=== PATIENT | female | born 1940 | race African-American/Black ===

== ENCOUNTER 2022-04-20 21:36 | Inpatient (IN) | payer MEDICARE, OTHER ==
[~2022-04-20] VITALS: Ht 188 cm; Wt 58.4 kg
[~2022-04-20 21:36] MED LIST: AMBIEN 5MG TABLE5 MG PO; ASPIRIN 32325 MG/TAB PO; CIPRO 500MG TA500 MG PO; COLACE 100100 MG/CAP PO; LORTAB 5/500 501 TAB PO; LOVENOX 4040 MG/0.4 SQ; NORCO 325 MG-7.1 TAB PO; PRILOSEC 20MG20 MG PO; ROXICODONE 55 MG/TAB PO; SIMVASTATIN10 MG PO; VALIUM 5MG T5 MG/TAB PO; VITAMIN A PO; VITAMIN B COMPL1 T16 PO; VITAMIN D PO; VITAMIN E PO; ZOCOR 10MG10 MG PO; [UNRECOGNIZED DRUG - OTHER] PO
[2022-04-20 22:23] LABS: BASO # 0.1 K/mm3 (0.0-0.2); BASO % 1.7 % (0.0-2.0); EOS # 0.2 K/mm3 (0.0-0.7); EOS % 3.2 % (0.0-4.0); GRAN # 4.3 K/mm3 (1.4-6.5); GRAN % 65.2 % (42.2-75.2); HEMOGLOBIN 11.3 g/dl (12.5-16.0); LYMPH # 1.6 K/mm3 (1.2-3.4); MEAN CELL VOLUME 99 fl (80.0-100.0); MEAN CORPUSCULAR HEMOGLOBIN 31 pg (27-31); MEAN CORPUSCULAR HGB CONC 31 g/dl (33.0-37.0); MEAN PLATELET VOLUME 9.2 fl (7.4-10.4); MONO # 0.4 K/mm3 (0.1-0.6); MONO % 5.6 % (1.7-9.3); PLATELET COUNT 296 K/mm3 (130-400); RED BLOOD COUNT 3.69 M/mm3 (4.10-5.30); REDCELL DISTRIBUTION WIDTH-CV 13.8 % (11.5-14.5)
[2022-04-20 22:24] LABS: HEMATOCRIT 36.4 % (37.0-47.0)
[2022-04-20 22:29] LABS: PROTHROMBIN TIME 11.4 SECONDS (9.7-12.8)
[2022-04-20 22:54] LABS: ALBUMIN 3.8 gm/dL (3.4-4.8); BILIRUBIN,TOTAL 0.3 mg/dL (0.2-1.2); CALCIUM 9.6 mg/dL (8.4-10.2); CREATININE, serum 1.38 mg/dL (0.57-1.11); POTASSIUM 3.6 mmol/L (3.5-4.5); TOTAL PROTEIN 7.3 gm/dL (6.2-8.1)
[2022-04-20] MEDS ORDERED: RESTORIL30 MG (23:58)
[2022-04-21] VITALS (17 sets, daily range): BP systolic 106–185; BP diastolic 45–107; PULSE 63–103; TEMP 97–98.6
[2022-04-21] MEDS ORDERED: NORCO 325 MG-51 TAB PO (00:12)
--- NOTE | 2022-04-21 00:15 | NUR ---
PT ARRIVES VIA CART FROM ED. IS ALERT AND ORIENTED X3. DOES NOT REALIZE SHE BROKE HER HIP. MOVED TO BED WITH 3 ASSIST. RT LEG EXTERNALLY ROTATED. HAS INT TO LFA. REPORTS MORE PAIN TO RT LEG AFTER MOVING TO BED.
--- NOTE | 2022-04-21 00:30 | NUR ---
PT HAS HER COAT, PAIR OF SOCKS AND PINK HAIR COVERING WITH HER ON ADMISSION.
--- NOTE | 2022-04-21 00:44 | NUR ---
MEDICATED WITH HS MEDS INCLUDING MORPHINE 2MG IVP FOR PAIN AND HYDRALAZINE 10MG IVP FOR ELEVATED B/P. IVF STARTED. PT NPO.
--- NOTE | 2022-04-21 02:19 | NUR ---
MEDICATED WITH MORPHINE 2MG IVP FOR PAIN TO RT LEG.
--- NOTE | 2022-04-21 05:16 | NUR ---
MEDICATED WITH MORPHINE 2MG IVP FOR RT HIP PAIN.
--- NOTE | 2022-04-21 05:30 | NUR ---
INSERTED #16FR YANEZ CATH AND PLACED TO BSD, IMMEDIATE RETURN OF YELLOW URINE. UA COLLECTED AND SENT TO LAB. PT TOLERATED PROCEDURE WITHOUT PROBLEM.
[2022-04-21 05:47] LABS: COLLECTION METHOD CATHETER
[2022-04-21 05:53] LABS: MUCOUS Present (NOT PRESENT); SQUAMOUS EPITHELIAL None Seen /hpf (0-10); URINE BACTERIA None Seen /hpf (NONE SEEN)
[2022-04-21 05:54] LABS: URINE APPEARANCE Clear (CLEAR/HAZY); URINE BLOOD Negative (NEGATIVE); URINE COLOR Yellow (YELLOW); URINE GLUCOSE Negative (NEGATIVE); URINE KETONE Negative (NEGATIVE); URINE NITRATE Negative (NEGATIVE); URINE PROTEIN(semi-quant) TRACE (NEGATIVE); URINE UROBILINOGEN 0.2 E.U/dL (0.2-1.0)
[2022-04-21 06:31] LABS: BASO # 0.1 K/mm3 (0.0-0.2); BASO % 1.2 % (0.0-2.0); EOS # 0.2 K/mm3 (0.0-0.7); GRAN # 5.1 K/mm3 (1.4-6.5); GRAN % 66.9 % (42.2-75.2); HEMOGLOBIN 10.4 g/dl (12.5-16.0); LYMPH # 1.7 K/mm3 (1.2-3.4); MEAN CELL VOLUME 99 fl (80.0-100.0); MEAN CORPUSCULAR HEMOGLOBIN 30 pg (27-31); MEAN CORPUSCULAR HGB CONC 30 g/dl (33.0-37.0); MEAN PLATELET VOLUME 10.1 fl (7.4-10.4); MONO # 0.6 K/mm3 (0.1-0.6); MONO % 7.8 % (1.7-9.3); PLATELET COUNT 285 K/mm3 (130-400); RED BLOOD COUNT 3.47 M/mm3 (4.10-5.30); REDCELL DISTRIBUTION WIDTH-CV 13.7 % (11.5-14.5)
[2022-04-21 06:44] LABS: CALCIUM 8.9 mg/dL (8.4-10.2); CREATININE, serum 1.22 mg/dL (0.57-1.11); HEMATOCRIT 34.4 % (37.0-47.0); POTASSIUM 3.5 mmol/L (3.5-4.5)
--- NOTE | 2022-04-21 08:00 | NUR ---
PATIENT IS ORIENTED X2 BUT ASKED THE NURSE WHY SHE WAS NPO. NURSING REMINDED HER THAT SHE BROKE HER HIP. PATIENT STATED "OH YEAH, I FORGOT ABOUT THAT". HX OF DEMENTIA. PATIENT IS NPO FOR SURGERY LATER TODAY. IV FLUIDS INFUSING VIA PUMP INTO LEFT FORARM IV. YANEZ TO DD WITH SMALL AMOUNTS OF YELLOW URINE NOTED. PATIENT C/O PAIN AND REQUESTING PAIN MEDS. GAVE PRN ROXICODONE WITH SIPS. TEDS TO LLE. SCD'S TO BLE. POSITIVE PEDAL PULSES TO BLE. HEAD TO TOE ASSESSMENT COMPLETE. CALL LIGHT IN REACH. BED ALARM ON.
--- NOTE | 2022-04-21 11:10 | NUR ---
PATIENT GOING DOWN TO OR VIA BED. CONSENT ON CHART. PRE-OP FLUIDS HANGING. PRE-OP CHECKLIST COMPLETE. FAMILY AT BEDSIDE. PATIENT NOW OFF FLOOR.
--- NOTE | 2022-04-21 13:13 | NUR ---
Devulcanizer Charger rounds: Devulcanizer Charger visit attempted. Room had no Patient and no bed. Devulcanizer Charger assumes that Patient went to surgery.
--- NOTE | 2022-04-21 13:25 | NUR ---
PATIENT NOW BACK IN ROOM. ALERT BUT SL DROWSY. PATIENT WANTING TO SLEEP BUT C/O DISCOMFORT IN HER SHOULDERS. GAVE SCHEDULED TORADOL & TYLENOL. PATIENT ALSO RECEIVED DILAUDID IV IN PACU. SEVERAL FAMILY MEMEBERS AT BEDSIDE. HEAD TO TOE ASSESSMENT COMPLETE. AQUACEL TO RLE. SCD'S TO BLE. IV FLUIDS INFUSING INTO LEFT AC IV. LIGHTS TURNED DOWN A LITTE. CALL LIGHT IN REACH.
--- NOTE | 2022-04-21 21:15 | NUR ---
PT IN BED. DROWSY. REPORTS PAIN TO RT HIP 06/08. HAS AQUACEL DRSG ON, MINIMAL DRAINAGE NOTED THRU DRSG. TEDS/SCDS ON. PT TAKES HS MEDS WITHOUT PROBLEM. YANEZ TO BSD WITH YELLOW URINE. WATCHING TV.
[2022-04-22] VITALS (12 sets, daily range): BP systolic 113–134; BP diastolic 52–78; PULSE 85–102; TEMP 97.6–98.3
--- NOTE | 2022-04-22 01:31 | NUR ---
PT REPORTS PAIN 5/10 TO RT HIP. OXYCODONE 5MG PO AND SCHEDULED TORADOL IV GIVEN. PT DROWSY. IVF TO LFA INFUSING WITHOUT REDNESS OR SWELLING.
--- NOTE | 2022-04-22 05:20 | NUR ---
PT TAKES SCHEDULED ES TYLENOL WITHOUT PROBLEM. ICE PACK APPLIED TO RT HIP.
[2022-04-22 06:20] LABS: BASO % 0.1 % (0.0-2.0); LYMPH # 1.1 K/mm3 (1.2-3.4); LYMPH % 11.2 % (20.0-51.0); MEAN CELL VOLUME 99 fl (80.0-100.0); MEAN CORPUSCULAR HGB CONC 31 g/dl (33.0-37.0); MEAN PLATELET VOLUME 10.5 fl (7.4-10.4); MONO # 0.4 K/mm3 (0.1-0.6); MONO % 4.4 % (1.7-9.3); PLATELET COUNT 243 K/mm3 (130-400); RED BLOOD COUNT 3.01 M/mm3 (4.10-5.30); REDCELL DISTRIBUTION WIDTH-CV 13.5 % (11.5-14.5)
[2022-04-22 06:29] LABS: HEMATOCRIT 29.7 % (37.0-47.0); HEMOGLOBIN 9.1 g/dl (12.5-16.0); MEAN CORPUSCULAR HEMOGLOBIN 30 pg (27-31)
[2022-04-22 06:33] LABS: CALCIUM 9.3 mg/dL (8.4-10.2); CREATININE, serum 1.24 mg/dL (0.57-1.11); POTASSIUM 3.8 mmol/L (3.5-4.5)
--- NOTE | 2022-04-22 08:00 | NUR ---
PATIENT IS ORIENTED X2 BUT DISPLAYS INTERMITTENT CONFUSION/FORGETFULNESS. PATIENT HAS HX OF DEMNENTIA. VSS. REPORTS MILD DISCOMFT AT REST BUT EXPRESSED PAIN WITH ACTIVITY. GAVE PRN ROXICODONE WITH AM MEDS. NO C/O N/V. BREAKFAST TRAY ORDERED. NOTED SMALL, LOLITA SIZE, DRAINAGE TO RLE AQUACEL. TEDS & SCD'S TO BLE. POSITIVE PEDAL PULSES TO BLE. YANEZ TO DD WITH MOD AMOUNTS OF CLEAR YELLOW URINE NOTED. LEFT FORARM IV TO INT. HEAD TO TOE ASSESSMENT COMPLETE. NO OTHER NEEDS AT THIS TIME. CALL LIGHT IN REACH. BED ALARM ON.
--- NOTE | 2022-04-22 10:00 | NUR ---
PATIENT UP TO BEDSIDE CHAIR WITH PT. PATIENT TOLERATED ACTIVITY WELL, SEE PT NOTES. PATIENT NOW RESTING UP IN BEDSIDE CHAIR WITH CALL LIGHT IN REACH. CHAIR ALARM ON.
--- NOTE | 2022-04-22 10:58 | NUR ---
PATIENT C/O PAIN IN RIGHT SHOULDER AND RLE. PATIENT FREQUENTLY FORGETS SHE FELL AND FRACTURED HER RLE FEMUR. PATIENT STATED "I'VE NEVER BROKEN A BONE IN MY BODY". PATIENT DOES REPORT THAT SHE KNEW SHE FELL BUT WAS SUPRISED TO HERE SHE HAD SURGERY. PATIENT WILL NEED REHAB WITH 6 WEEKS NWB TO RLE. PATIENT FOLLOWS VERBAL QUES WHEN DIRECTED BUT WILL REQUIRE FREQUENT REMINDS AND CONTINUED CARE UPON DISCHARGE.
--- NOTE | 2022-04-22 11:12 | NUR ---
FAMILY NOW AT BEDSIDE VISITING WITH PATIENT. NO NEEDS.
--- NOTE | 2022-04-22 11:22 | NUR ---
SW met with patient to complete intake. Patient states that she lives in [place], [place] alone. Next of kin is her son Gustavo Silva [phone]. Patient states that she does not currently utilize DME, is independent with ADL's, and does not obtain services with home health. PCP is Dr. Bowen, and pharmacy is [facility]. Patient states that she does not have anyone specific appointed as her DPOA of HC. DC plan is to return to her home upon DC, could potentially need HH services VS skilled. SW will continue to follow. DC plan: HH vs SNF
--- NOTE | 2022-04-22 19:09 | NUR ---
PT REPORTS PAIN TO RT HIP INTO RT FOOT. MEDICATED WITH TRAMADOL AT THIS TIME. RT FOOT WITH HEEL FLOATED ON PILLOW.
--- NOTE | 2022-04-22 20:11 | NUR ---
PT IN BED, READY FOR SLEEP. HS MEDS GIVEN INCLUDING OXYCODONE FOR CONTINUED RT LEG PAIN AND RT SHOULDER PAIN. IVF TO LFA INFUSING WITHOUT PROBLEM. YANEZ TO BSD WITH YELLOW URINE.
--- NOTE | 2022-04-22 20:46 | NUR ---
PT CONTINUES TO COMPLAIN OF RT HIP AND FOOT PAIN. MEDICATED WITH SECOND OXYCODONE 5MG PO NOW.
--- NOTE | 2022-04-22 22:17 | NUR ---
PT SITTING UP IN BED, REPORTS RT AND LEFT HEEL PAIN. PLACED BOTH HEELS IN HEEL BOOTS. MEDICATED WITH BENADRYL 25MG PO FOR ITCHING AND MORPHINE 2MG IVP FOR PAIN.
--- NOTE | 2022-04-22 23:45 | NUR ---
PT REPORTS HEEL PAIN IS GONE.
--- NOTE | 2022-04-22 23:51 | NUR ---
PT ACCIDENTALLY PULLED IV OUT, RESTARTED #22 INSYTE TO LFA ON FIRST ATTEMPT, CONNECTED IVF. PT TOLERATED WITHOUT PROBLEM.
[2022-04-23] VITALS (7 sets, daily range): BP systolic 120–154; BP diastolic 59–75; PULSE 84–110; TEMP 97.1–98.5
--- NOTE | 2022-04-23 01:21 | NUR ---
PT RESTLESS, SAYS SHE HURTS ALL OVER. MEDICATED WITH OXYCODONE 5MG PO NOW AND MORPHINE 2MG IVP.
--- NOTE | 2022-04-23 01:21 | NUR ---
PT RESTLESS, GOING THRU HER PURSE. REPORTS PAIN TO RT ARM, RT LEG. MEDICATED WITH MORPHINE 2MG IVP AND OXYCODONE 5MG PO NOW.
--- NOTE | 2022-04-23 01:33 | NUR ---
PT ASKS FOR BENADRYL, ARMS ARE ITCHING, NO RASH. ONE TIME BENADRYL 25MG PO NOW GIVEN. LOTION APPLIED TO ARMS WELL FOR COMFORT.
--- NOTE | 2022-04-23 02:08 | NUR ---
PT STILL HAVING PAIN, OXYCODONE 5MG PO GIVEN. PT REPORTS LESS ITCHING AFTER BENADRYL.
--- NOTE | 2022-04-23 04:26 | NUR ---
PT SET OFF BED ALARM, HAD MOVED TO END OF BED, BUT DID NOT TRY TO STAND ON HER OWN. SHE HAS HER PURSE CONTENTS EMPTIED ON THE BED, FOUND MANY MEDICATION CAPSULES ON BEDCOVERS. PT WAS LOOKING FOR HER MONEY AND THINKS HER SON HAS IT. PILL BOTTLE WITH TEMAZEPAM AND CAPSULES FROM THE BED TAKEN TO PHARMACY FOR SAFE KEEPING WELL HER NORCO. PT ASSISTED BACK IN THE BED. SHE PLACED A PHONE CALL TO HER SON. BED ALARM ON.
--- NOTE | 2022-04-23 06:35 | NUR ---
PT HAS REMAINED IN BED. NO REQUESTS FOR PAIN MEDS AT THIS TIME. IVF CONTINUE TO LFA WITHOUT PROBLEM. BED ALARM ON.
[2022-04-23 07:10] LABS: HEMATOCRIT 27.9 % (37.0-47.0); HEMOGLOBIN 8.4 g/dl (12.5-16.0)
--- NOTE | 2022-04-23 08:33 | NUR ---
Patient resting in bed. She tolerated a light breakfast, but reports she did not like it. Pain rating 8/10. Medicated for pain per orders.anticipating therapy. Right hip aquacell dressing intact. Cms intact. Ivf per orders. Dorene weston DD. Will monitor.
--- NOTE | 2022-04-23 10:18 | NUR ---
Patient up to chair with therapy, non weight bearing status. Her daughter at bedside. Pain managed at this time.
--- NOTE | 2022-04-23 10:43 | NUR ---
Patient having facial grimacing. 8/10 pain. Called provider & we switched medication to Bedias per home regiment & DC oxicodone. Patient also having complaints of itching. Prn benydryl per her request. Margarito lowe
--- NOTE | 2022-04-23 11:18 | NUR ---
The patient is going to be nonweight bearing for 6 weeks. PT is recommending SNF. SW met with the patient and her daughter, Leta, to review their recommendation and provided them with Medicare.gov's list of SNFs in the [facility]. Leta states that they would prefer [facility] or [facility]. They are not interested in [facility] in [place]. RODNEY informed them of IPR and inquired about plans after rehab. Leta states that family is able to provide 24/7 care at home, but they are looking at the patient being at a facility for 6 weeks. Leta shares that the patient's knee was not in the best shape before the fall and the patient was already having some difficulties ambulating, so is unsure if she will even be able to ambulate much, after rehab. SW inquired if the patient has a DPOA-HC. Leta states that she does and she emailed this SW the patient's DPOA-HC. SW placed the document in the patient's chart. The patient's DPOA-HC was her late . The alternates are the patient's daughter, Derek Donato (Denese), and her son, Gustavo. RODNEY consulted IPR Director. RODNEY contacted and faxed a referral to [facility] and [facility]. Awaiting screens. RODNEY also placed the Break in Stay Letter on the patient's chart for the ortho doctor to complete. RODNEY notified the patient's RN and community relations coordinator of this. *Discharge plan: post-acute rehab. Referrals out*
--- NOTE | 2022-04-23 13:39 | NUR ---
Stella, at [facility], reports that they do not have any beds available at this time, but they could continue to receive updates, in case a beds opens up.
--- NOTE | 2022-04-23 20:11 | NUR ---
Patient resting in bed. She has had multiple visitors at bedside today. Patient did well with ramirez removal. She has voided with 2 assist up to bedside commode, remaining non weight bearing to RLE. She has tolerated meals with PO intake encouragement, She likes ensure shakes. Pain managed with PO medications today, pain with movement rating 6-8. Ice pack to hip. Scds BLE. Festus removed this eveing. Report to Suzanna to resume cares.
--- NOTE | 2022-04-23 20:51 | NUR ---
PT IN BED, IS ALERT AND ORIENTED X2, NOT SURE WHERE SHE IS OR TIME OF DAY. HAS INT TO LFA. RT HIP AQUACEL WITH DRAINAGE BENEATH. REFUSES ICE PACK. TAKES HS MEDS INCLUDING BENADRYL FOR ITCHING. BED ALARM ON.
[2022-04-24] VITALS (7 sets, daily range): BP systolic 137–176; BP diastolic 64–84; PULSE 96–112; TEMP 97.4–98.4
--- NOTE | 2022-04-24 00:33 | NUR ---
PT CALLS FOR ASSIST TO BSC, DOES WELL WITH REMEMBERING NWB RT LEG. VOIDS AND BACK TO BED. NORCO GIVEN FOR RT HIP PAIN.
--- NOTE | 2022-04-24 00:52 | NUR ---
CONTINUES TO COMPLAIN OF RT HIP PAIN, TRAMADOL GIVEN FOR PAIN.
--- NOTE | 2022-04-24 03:57 | NUR ---
PT CALLS FOR ASSIST TO BSC, VOIDS AND BACK TO BED. REPORTS RT HIP PAIN, MEDICATED WITH NORCO AND BENADRYL FOR ITCHING. ASKS WHERE SHE IS, REORIENTED TO PLACE AND TIME.
[2022-04-24 06:58] LABS: CALCIUM 9.2 mg/dL (8.4-10.2); CREATININE, serum 1.04 mg/dL (0.57-1.11); POTASSIUM 5.1 mmol/L (3.5-4.5)
[2022-04-24 07:01] LABS: BASO # 0.1 K/mm3 (0.0-0.2); BASO % 0.9 % (0.0-2.0); EOS # 0.4 K/mm3 (0.0-0.7); EOS % 4.3 % (0.0-4.0); GRAN % 57.8 % (42.2-75.2); LYMPH # 2.6 K/mm3 (1.2-3.4); LYMPH % 30.2 % (20.0-51.0); MEAN CELL VOLUME 98 fl (80.0-100.0); MEAN CORPUSCULAR HGB CONC 31 g/dl (33.0-37.0); MEAN PLATELET VOLUME 10.4 fl (7.4-10.4); MONO # 0.6 K/mm3 (0.1-0.6); MONO % 6.5 % (1.7-9.3); PLATELET COUNT 293 K/mm3 (130-400); RED BLOOD COUNT 2.85 M/mm3 (4.10-5.30); REDCELL DISTRIBUTION WIDTH-CV 13.7 % (11.5-14.5)
[2022-04-24 07:10] LABS: HEMATOCRIT 27.9 % (37.0-47.0); HEMOGLOBIN 8.7 g/dl (12.5-16.0); MEAN CORPUSCULAR HEMOGLOBIN 31 pg (27-31)
--- NOTE | 2022-04-24 09:32 | NUR ---
PATIENT ALERT AND ORIENTED X4. VSS. PATIENT HERE FOR RIGHT HIP FX. PATIENT REPORTS PAIN 9/10, REQUESTS PAIN MEDICATION. DRESSING TO RIGHT SURGICAL SITE, WITH DRAINAGE. PATIENT DENIES ANY FURTHER NEEDS. CALL LIGHT WITHIN REACH.
--- NOTE | 2022-04-24 16:20 | NUR ---
The ortho doctor and PA completed and signed the Break in Stay Letter. RODNEY faxed the letter and updates to Yonatan at [facility]. Yonatan states that they are able to accept the patient. He states that he talked to the patient's son about how due to the patient's NWB status, SNF would be covered by Medicare for a couple of weeks, but then the patient/family would have to private pay for the six weeks and this would be around $8,900. RODNEY contacted the patient's son, Gustavo, to follow up. Gustavo states that this is ultimately the only choice they have, but he wants to talk to the patient about this first. RODNEY then contacted the patient's daughter, Leta, to update and follow up on their decision. Leta states that they do want to move forward with [facility]. RODNEY updated Yonatan at [facility].
--- NOTE | 2022-04-24 18:50 | NUR ---
PT SITTING AT EDGE OF BED, WANTS TO USE BSC, BED ALARM WAS OFF, PT WAS TRYING TO ASSIST SELF. ASSISTED WITH WALKER AND GAIT BELT TO BSC, PT NWB RT LEG. DOES FAIR AND BACK TO BED. FAMILY HERE TO SEE PT. NAY PHAN TO RT HIP D/I.
--- NOTE | 2022-04-24 19:15 | NUR ---
PT ACCIDENTALLY PULLED INT OUT FROM LFA, ANGIOCATH INTACT. PT TO DISCHARGE 04/25, WILL LEAVE INT OUT FOR NOW.
--- NOTE | 2022-04-24 21:05 | NUR ---
PT ASSISTED TO BSC, PT COMPLAINS OF RT HIP AND KNEE PAIN. BACK TO BED. TAKES HS MEDS INCLUDING NORCO FOR PAIN AND BENADRYL FOR ITCHING. BED ALARM ON.
--- NOTE | 2022-04-25 | NUR ---
PT SLEEPING, WILL GET VS AT 0400.
--- NOTE | 2022-04-25 03:30 | NUR ---
PT SITTING AT END OF BED, WAS INCONTINENT OF LARGE AMOUNT OF URINE. DISORIENTED TO PLACE AND TIME. LINENS CHANGED AND REPOSITIONED BACK IN BED.
--- NOTE | 2022-04-25 03:42 | NUR ---
PT HAS BEEN SCRATCHING HER BACK, MEDICATED WITH BENADRYL 25MG PO NOW WITH NORCO 1 PO FOR RT HIP PAIN.
[2022-04-25 04:06] VITALS: BP 171/85; PULSE 117; TEMP 98.6
--- NOTE | 2022-04-25 04:19 | NUR ---
PT AQL=[id number], NOTIFIED KELECHI BASS, PT HAS NO IV ACCESS AND IS DISCHARGING TO [facility] TODAY. HYDRALAZINE 10MG PO ORDERED AND GIVEN AT THIS TIME.
[2022-04-25 05:10] VITALS: BP 149/79; PULSE 110
[2022-04-25 08:00] VITALS: BP 116/61; PULSE 120; TEMP 97.8
[2022-04-25] MEDS ORDERED: ASPIRIN E.C. 8181 MG PO (09:43)
[2022-04-25] MEDS ORDERED: RESTORIL30 MG PO (09:44)
[2022-04-25] MEDS ORDERED: OSCAL 500 TAB500 MG PO (09:44)
[2022-04-25] MEDS ORDERED: NORCO 325 MG-51 TAB PO (09:44)
[2022-04-25] MEDS ORDERED: TYLENOL 325MG325 MG PO (09:44)
[2022-04-25] MEDS ORDERED: MULTI VITAMINS1 TAB PO (09:45)
[2022-04-25] MEDS ORDERED: SENOKOT S 50 MG1 TAB PO (09:45)
[2022-04-25] MEDS ORDERED: VITAMIN C500 MG PO (09:45)
--- NOTE | 2022-04-25 10:42 | NUR ---
The patient is to discharge today, 04/25, to [facility] for a skilled stay. Transportation to be provided by [facility] at either 1200 or 1400. SW contacted the patient's daughter, Leta, to update. Leta is in agreement to the plan. RODNEY read the IM form outloud to Leta over the phone. Leta verbalized understanding and gave SW approval to sign the form on her behalf. No additional needs at this time.
[2022-04-25 11:52] VITALS: BP 126/76; PULSE 115; TEMP 98
--- NOTE | 2022-04-25 15:21 | NUR ---
REPORT CALLED TO [facility] ([facility]). PATIENT AND BELONGINGS ESCORTED OUT VIA WHEELCHAIR.
== END 2022-04-25 15:15 | DRG 481 ==
LOC: COL.ER 21:36 → SURG 23:15
PROVIDERS: Orthopaedic Surgery; Personal Emergency Response Attendant; Physician Assistant; Student in an Organized Health Care Education/Training Program; ADMIT Internal Medicine
PROC: 0QS604Z Reposition Right Upper Femur with Internal Fixation Device, Open Approach (ICD-10-PCS; principal; 2022-04-21 12:00)
DX: S72.141A Displaced intertrochanteric fracture of right femur, initial encounter for closed fracture (principal); E44.0 Moderate protein-calorie malnutrition; Z68.1 Body mass index [BMI] 19.9 or less, adult; F03.90 Unspecified dementia, unspecified severity, without behavioral disturbance, psychotic disturbance, mood disturbance, and anxiety; M19.90 Unspecified osteoarthritis, unspecified site; G89.29 Other chronic pain; D64.9 Anemia, unspecified; K21.9 Gastro-esophageal reflux disease without esophagitis; G43.909 Migraine, unspecified, not intractable, without status migrainosus; W18.39XA Other fall on same level, initial encounter; Z90.49 Acquired absence of other specified parts of digestive tract; Y93.89 Activity, other specified; Y92.098 Other place in other non-institutional residence as the place of occurrence of the external cause; Z79.82 Long term (current) use of aspirin; Z23 Encounter for immunization
CPT/HCPCS: A4314; A9284; C1713; C1776; J0360; J0690; J1100; J1170; J1885; J2270; J2370; J2405; J2704; J3010; J7121

== ENCOUNTER 2022-04-26 01:15 | Emergency (ER) | payer MEDICARE, OTHER ==
[~2022-04-26 01:15] MED LIST changes: +ASPIRIN E.C. 8181 MG PO; +MULTI VITAMINS1 TAB PO; +NORCO 325 MG-51 TAB PO; +OSCAL 500 TAB500 MG PO; +RESTORIL30 MG; +RESTORIL30 MG PO; +SENOKOT S 50 MG1 TAB PO; +TYLENOL 325MG325 MG PO; +VITAMIN C500 MG PO
[2022-04-26 02:04] VITALS: TEMP 97.8
[2022-04-26 03:47] VITALS: BP 160/81; PULSE 110
== END 2022-04-26 03:50 | disposition home or self-care (01) ==
LOC: COL.ER 01:15
DX: G89.18 Other acute postprocedural pain (principal); M25.551 Pain in right hip; R00.0 Tachycardia, unspecified; W06.XXXA Fall from bed, initial encounter
CPT/HCPCS: J3010

== ENCOUNTER → 2022-05-24 | Outpatient (CLI) | payer MEDICARE, OTHER | LOC: COL.RAD 13:43 | DX: S72.001D Fracture of unspecified part of neck of right femur, subsequent encounter for closed fracture with routine healing (principal); X58.XXXD Exposure to other specified factors, subsequent encounter | CPT/HCPCS: J0690; J2704; J3010 ==

== ENCOUNTER 2022-05-28 11:58 | Emergency (ER) | payer MEDICARE, OTHER ==
[~2022-05-28] VITALS: Ht 157.5 cm; Wt 56.4 kg
[2022-05-28 12:47] LABS: HEMATOCRIT 37.7 % (37.0-47.0); HEMOGLOBIN 11.7 g/dl (12.5-16.0); MEAN CELL VOLUME 97 fl (80.0-100.0); MEAN CORPUSCULAR HEMOGLOBIN 30 pg (27-31); MEAN CORPUSCULAR HGB CONC 31 g/dl (33.0-37.0); MEAN PLATELET VOLUME 9.4 fl (7.4-10.4); PLATELET COUNT 358 K/mm3 (130-400); RED BLOOD COUNT 3.89 M/mm3 (4.10-5.30); REDCELL DISTRIBUTION WIDTH-CV 12.8 % (11.5-14.5)
[2022-05-28 12:55] LABS: ALBUMIN 3.9 gm/dL (3.4-4.8); BILIRUBIN,TOTAL 0.7 mg/dL (0.2-1.2); CALCIUM 11.5 mg/dL (8.4-10.2); CREATININE, serum 1.41 mg/dL (0.57-1.11); TOTAL PROTEIN 8.4 gm/dL (6.2-8.1)
[2022-05-28 13:09] LABS: BAND 10 % (0-10); LYMPHOCYTE 2 % (20.0-51.0); NEUTROPHILS 87 % (42.0-75.2); PLATELET ESTIMATE NORMAL (NORMAL)
[2022-05-28 14:31] LABS: COLLECTION METHOD CLEAN CATCH
[2022-05-28 14:48] LABS: URINE APPEARANCE Hazy (CLEAR/HAZY); URINE BACTERIA None Seen /hpf (NONE SEEN); URINE COLOR Yellow (YELLOW); URINE GLUCOSE Negative (NEGATIVE); URINE KETONE Negative (NEGATIVE); URINE NITRATE Negative (NEGATIVE); URINE PROTEIN(semi-quant) Negative (NEGATIVE)
[2022-05-28 14:50] LABS: URINE BLOOD TRACE-INTACT (NEGATIVE)
[2022-05-28 17:02] VITALS: BP 150/86; PULSE 127; TEMP 98.6
== END 2022-05-28 17:02 ==
LOC: COL.ER 11:58
PROVIDERS: Emergency Medicine
DX: R10.31 Right lower quadrant pain (principal); G89.18 Other acute postprocedural pain; M25.551 Pain in right hip; D72.829 Elevated white blood cell count, unspecified; R00.0 Tachycardia, unspecified; R79.89 Other specified abnormal findings of blood chemistry; Z87.828 Personal history of other (healed) physical injury and trauma; Z90.49 Acquired absence of other specified parts of digestive tract
CPT/HCPCS: J2270; J2405; J7030; Q9967

== ENCOUNTER → 2022-07-05 | Outpatient (CLI) | payer MEDICARE, OTHER | LOC: COL.RAD 11:43 | DX: Z09 Encounter for follow-up examination after completed treatment for conditions other than malignant neoplasm (principal); S72.001D Fracture of unspecified part of neck of right femur, subsequent encounter for closed fracture with routine healing ==